=== PATIENT | female | born 1950 | race African-American/Black ===

== ENCOUNTER 2017-12-07 14:53 | Emergency (ER) | payer MEDICARE, OTHER ==
[~2017-12-07] VITALS: Ht 167.6 cm; Wt 87.3 kg
[~2017-12-07 14:53] MED LIST: ADV250 IH; ALBU8HFA4 IH; AMLO-512 PO; ASPI81 PO; BENA20 PO; CALC-41 PO; CLON-570 PO; DSS100 PO; FERR-89 PO; FURO40 PO; LENA10CA PO; METF500T4 PO; MONT10TA21 PO; ONDA4 PO; POTA10CA44 PO; PRAV20TA4 PO; [UNRECOGNIZED DRUG - CODE] PO
[2017-12-07] MEDS ORDERED: ALBU8.5H8 IH (15:03)
[2017-12-07] MEDS ORDERED: AMLO-511 PO (15:03)
[2017-12-07] MEDS ORDERED: BENA20 PO (15:03)
[2017-12-07] MEDS ORDERED: ADV250 IH (15:03)
[2017-12-07] MEDS ORDERED: MIRALAX PO (15:03)
[2017-12-07] MEDS ORDERED: GABA-531 PO (15:03)
[2017-12-07] MEDS ORDERED: MACR100 PO (15:03)
[2017-12-07 15:07] LABS: GLUCOSE,POINT OF CARE 134 MG/DL (70-110)
[2017-12-07] MEDS ORDERED: ONDANSETRON HCL 4 MG/2 ML VIAL IVP ONE ×2 (15:45→20:00)
[2017-12-07 15:59] LABS: BASOPHILS % (AUTO) 1.4 % (0.0-2.0); EOSINOPHILS % (AUTO) 1.6 % (1.0-6.0); HEMATOCRIT 41.4 % (36-46); HEMOGLOBIN 13.2 g/dL (12.0-16.0); LYMPHOCYTES # (AUTO) 1.3 K/uL (1.0-4.8); LYMPHOCYTES % (AUTO) 20.1 % (22.0-44.0); MEAN CORPUSCULAR HEMOGLOBIN 22.2 pg (26.0-34.0); MEAN CORPUSCULAR HGB CONC 31.9 G/dL (31.0-37.0); MEAN CORPUSCULAR VOLUME 70 fL (80-100); MONOCYTES # (AUTO) 0.8 K/uL (0.1-1.0); MONOCYTES % (AUTO) 12.9 % (2.0-9.0); NEUTROPHILS # (AUTO) 4.1 K/uL (1.8-7.7); PLATELET COUNT (AUTO) 251 K/uL (150-450); RED BLOOD CELL COUNT(AUTO) 5.96 MIL/uL (4.00-5.20); RED CELL DISTRIBUTION WIDTH 16.1 % (11.5-14.5)
[2017-12-07 16:05] LABS: ANION GAP 12 mmol/L (8-16); CALCIUM, TOTAL 8.9 mg/dL (8.8-10.5); CARBON DIOXIDE 27 mmol/L (22-29); CHLORIDE 107 mmol/L (98-107); CREATININE 0.84 mg/dL (0.60-1.30); GLOMERULAR FILTR. RATE CALC > 60 mL/min (>60); GLUCOSE,RANDOM 130 mg/dL (70-110); POTASSIUM 3.3 mmol/L (3.5-5.1); SODIUM SERUM 146 mmol/L (136-145); UREA NITROGEN, BLOOD 11 mg/dL (7-18)
[2017-12-07 16:08] LABS: APPEARANCE,URINE CLEAR (CLEAR); BILIRUBIN,URINE NEGATIVE (NEGATIVE); GLUCOSE, URINE (UA) NEGATIVE (NEGATIVE); KETONES,URINE NEGATIVE (NEGATIVE); LEUKOCYTE ESTERASE ,URINE MODERATE (NEGATIVE); NITRATE,URINE NEGATIVE (NEGATIVE); OCCULT BLOOD,URINE NEGATIVE (NEGATIVE); PH,URINE 6.5 (5.0-8.0); PROTEIN,URINE NEGATIVE (NEGATIVE); UROBILINOGEN,URINE 0.2 mg/dL (<=1.0)
[2017-12-07 16:11] LABS: ALANINE AMINOTRANSFERASE 25 U/L (12-78); ALBUMIN 3.8 g/dL (3.4-5.0); ALKALINE PHOSPHATASE 82 U/L (46-116); ASPARTATE AMINOTRANSFERASE 20 U/L (15-37); LIPASE 68 U/L (73-393); TOTAL PROTEIN, SERUM 8.5 g/dL (6.4-8.2)
[2017-12-07 16:24] LABS: PLATELET MORPHOLOGY COMMENT NORMAL
[2017-12-07 16:27] LABS: BACTERIA,URINE Few /HPF (None Seen); RBC,URINE 0-2 /HPF (0-2); SQUAMOUS EPITHELIAL CELL,UR Few /LPF (None Seen)
[2017-12-07] MEDS ORDERED: IOVERSOL 320 MG/ML 100 ML VIAL ONE (16:28)
[2017-12-07] MEDS ORDERED: BARIUM SULFATE 0.1% SUSPENSION 450 ML BOTTLE PO ONE (16:30)
[2017-12-07] MEDS ORDERED: SODIUM CHLORIDE 0.9% 1,000 ML IV ONE (16:45)
[2017-12-07] MEDS ORDERED: POTASSIUM CHLORIDE 20 MEQ ER TABLET PO ONE (17:15)
[2017-12-07] MEDS ORDERED: MORPHINE SULFATE 4 MG/ML SYRINGE IVP ONE (20:00)
[2017-12-07] MEDS ORDERED: CIPROFLOXACIN 400 MG/D5% WATER 200 ML IV ONE (21:45)
[2017-12-07 22:46] VITALS: BP 150/88
== END 2017-12-07 23:00 | disposition left against medical advice (07) ==
LOC: EMS 14:54
DX: N39.0 Urinary tract infection, site not specified (principal); R10.9 Unspecified abdominal pain; K82.8 Other specified diseases of gallbladder; J45.909 Unspecified asthma, uncomplicated; E11.9 Type 2 diabetes mellitus without complications; I10 Essential (primary) hypertension; Z88.1 Allergy status to other antibiotic agents; Z79.82 Long term (current) use of aspirin; Z79.899 Other long term (current) drug therapy
CPT/HCPCS: 36415; 74177; 76705; 80053; 81001; 82962; 83690; 84484; 85025; 87086; 93005; 96365; 96375; 96376; 99285; J0744; J2270; J2405; J7030; Q9967

== ENCOUNTER 2017-12-24 10:48 | Emergency (ER) | payer MEDICARE, OTHER ==
[~2017-12-24] VITALS: Ht 167.6 cm; Wt 87.3 kg
[~2017-12-24 10:48] MED LIST changes: +AMLO-511 PO; -AMLO-512 PO; -CALC-41 PO; -FERR-89 PO; +GABA-531 PO; -LENA10CA PO; +MACR100 PO; +MIRALAX PO; -[UNRECOGNIZED DRUG - CODE] PO
[2017-12-24 11:08] LABS: GLUCOSE,POINT OF CARE 144 MG/DL (70-110)
[2017-12-24] MEDS ORDERED: MORPHINE SULFATE 4 MG/ML SYRINGE IVP ONE (12:30)
[2017-12-24] MEDS ORDERED: ONDANSETRON HCL 4 MG/2 ML VIAL IVP ONE (12:30)
[2017-12-24 13:14] LABS: BASOPHILS % (AUTO) 2.4 % (0.0-2.0); EOSINOPHILS % (AUTO) 3.1 % (1.0-6.0); HEMATOCRIT 38.8 % (36-46); HEMOGLOBIN 12.1 g/dL (12.0-16.0); LYMPHOCYTES # (AUTO) 1.1 K/uL (1.0-4.8); LYMPHOCYTES % (AUTO) 22.9 % (22.0-44.0); MEAN CORPUSCULAR HEMOGLOBIN 21.9 pg (26.0-34.0); MEAN CORPUSCULAR HGB CONC 31.3 G/dL (31.0-37.0); MEAN CORPUSCULAR VOLUME 70 fL (80-100); MONOCYTES # (AUTO) 0.5 K/uL (0.1-1.0); MONOCYTES % (AUTO) 11.1 % (2.0-9.0); NEUTROPHILS # (AUTO) 2.9 K/uL (1.8-7.7); NEUTROPHILS % (AUTO) 60.5 % (40.0-70.0); PLATELET COUNT (AUTO) 269 K/uL (150-450); RED BLOOD CELL COUNT(AUTO) 5.54 MIL/uL (4.00-5.20); RED CELL DISTRIBUTION WIDTH 16.8 % (11.5-14.5)
[2017-12-24 13:30] VITALS: BP 148/85
[2017-12-24 13:39] LABS: ANION GAP 10 mmol/L (8-16); CALCIUM, TOTAL 9.2 mg/dL (8.8-10.5); CARBON DIOXIDE 29 mmol/L (22-29); CHLORIDE 106 mmol/L (98-107); CREATININE 0.77 mg/dL (0.60-1.30); GLOMERULAR FILTR. RATE CALC > 60 mL/min (>60); GLUCOSE,RANDOM 126 mg/dL (70-110); POTASSIUM 3.5 mmol/L (3.5-5.1); SODIUM SERUM 145 mmol/L (136-145); UREA NITROGEN, BLOOD 8 mg/dL (7-18)
[2017-12-24 13:44] LABS: ALANINE AMINOTRANSFERASE 91 U/L (12-78); ALBUMIN 3.5 g/dL (3.4-5.0); ALKALINE PHOSPHATASE 266 U/L (46-116); ASPARTATE AMINOTRANSFERASE 48 U/L (15-37); TOTAL PROTEIN, SERUM 7.6 g/dL (6.4-8.2)
== END 2017-12-24 13:51 | disposition home or self-care (01) ==
LOC: EMS 10:50
DX: S39.012A Strain of muscle, fascia and tendon of lower back, initial encounter (principal); J45.909 Unspecified asthma, uncomplicated; E11.9 Type 2 diabetes mellitus without complications; I10 Essential (primary) hypertension; Z88.1 Allergy status to other antibiotic agents; X50.0XXA Overexertion from strenuous movement or load, initial encounter; Y93.89 Activity, other specified; Y92.89 Other specified places as the place of occurrence of the external cause; Y99.8 Other external cause status
CPT/HCPCS: 36415; 73503; 80053; 82962; 85025; 96374; 96375; 99285; J2270; J2405

== ENCOUNTER 2017-12-27 15:10 | Emergency (ER) | payer MEDICARE, OTHER ==
[~2017-12-27] VITALS: Ht 167.6 cm; Wt 84.0 kg
[2017-12-27] MEDS ORDERED: CIPR-245 PO (15:19)
[2017-12-27] MEDS ORDERED: AMLO10TA55 PO (15:19)
[2017-12-27] MEDS ORDERED: PHEN-948 PO (15:19)
[2017-12-27] MEDS ORDERED: SODIUM CHLORIDE 0.9% 1,000 ML IV ONE (18:00)
[2017-12-27] MEDS ORDERED: BARIUM SULFATE 0.1% SUSPENSION 450 ML BOTTLE PO ONE (18:15)
[2017-12-27 18:19] LABS: EOSINOPHILS % (AUTO) 1.9 % (1.0-6.0); HEMATOCRIT 37.6 % (36-46); LYMPHOCYTES # (AUTO) 0.1 K/uL (1.0-4.8); LYMPHOCYTES % (AUTO) 1.1 % (22.0-44.0); MEAN CORPUSCULAR HEMOGLOBIN 22.2 pg (26.0-34.0); MEAN CORPUSCULAR HGB CONC 31.9 G/dL (31.0-37.0); MEAN CORPUSCULAR VOLUME 70 fL (80-100); MONOCYTES # (AUTO) 0.3 K/uL (0.1-1.0); MONOCYTES % (AUTO) 3.6 % (2.0-9.0); NEUTROPHILS # (AUTO) 7.7 K/uL (1.8-7.7); PLATELET COUNT (AUTO) 270 K/uL (150-450); RED CELL DISTRIBUTION WIDTH 16.4 % (11.5-14.5)
[2017-12-27 18:27] LABS: NEUTROPHILS % (AUTO) 92.4 % (40.0-70.0)
[2017-12-27 18:38] LABS: ALANINE AMINOTRANSFERASE 60 U/L (12-78); ALBUMIN 3.5 g/dL (3.4-5.0); ALKALINE PHOSPHATASE 196 U/L (46-116); ANION GAP 12 mmol/L (8-16); ASPARTATE AMINOTRANSFERASE 43 U/L (15-37); BILIRUBIN,TOTAL 1.6 mg/dL (0.1-1.0); CARBON DIOXIDE 27 mmol/L (22-29); CHLORIDE 103 mmol/L (98-107); CREATININE 0.88 mg/dL (0.60-1.30); GLOMERULAR FILTR. RATE CALC > 60 mL/min (>60); GLUCOSE,RANDOM 134 mg/dL (70-110); SODIUM SERUM 142 mmol/L (136-145); TOTAL PROTEIN, SERUM 7.6 g/dL (6.4-8.2); UREA NITROGEN, BLOOD 9 mg/dL (7-18)
[2017-12-27 18:52] LABS: APPEARANCE,URINE CLEAR (CLEAR); BILIRUBIN,URINE NEGATIVE (NEGATIVE); GLUCOSE, URINE (UA) NEGATIVE (NEGATIVE); KETONES,URINE NEGATIVE (NEGATIVE); LEUKOCYTE ESTERASE ,URINE TRACE (NEGATIVE); NITRATE,URINE POSITIVE (NEGATIVE); OCCULT BLOOD,URINE NEGATIVE (NEGATIVE); PH,URINE 5.5 (5.0-8.0); PROTEIN,URINE NEGATIVE (NEGATIVE)
[2017-12-27 19:04] LABS: BACTERIA,URINE Few /HPF (None Seen); RBC,URINE 0-2 /HPF (0-2); SQUAMOUS EPITHELIAL CELL,UR Few /LPF (None Seen)
[2017-12-27 19:06] LABS: POTASSIUM 2.8 mmol/L (3.5-5.1)
[2017-12-27] MEDS ORDERED: POTASSIUM CHLORIDE 20 MEQ ER TABLET PO ONE (19:15)
[2017-12-27] MEDS ORDERED: IOVERSOL 350 MG/ML 150 ML VIAL ONE (19:57)
[2017-12-27 21:10] VITALS: BP 119/78
== END 2017-12-27 21:41 | disposition home or self-care (01) ==
LOC: EMS 15:13
DX: E87.6 Hypokalemia (principal); R19.7 Diarrhea, unspecified; E11.9 Type 2 diabetes mellitus without complications; I10 Essential (primary) hypertension; J45.909 Unspecified asthma, uncomplicated; R10.32 Left lower quadrant pain; Z79.82 Long term (current) use of aspirin
CPT/HCPCS: 36415; 74177; 80053; 81001; 85025; 96360; 99285; J7030; Q9967

== ENCOUNTER 2018-08-23 10:27 | Emergency (ER) | payer MEDICARE, OTHER ==
[~2018-08-23] VITALS: Ht 162.6 cm; Wt 82.7 kg
[~2018-08-23 10:27] MED LIST changes: -AMLO-511 PO; +AMLO10TA55 PO; +CIPR-245 PO; -MACR100 PO; +METF-960 PO; -METF500T4 PO; +PHEN-948 PO; -PRAV20TA4 PO
[2018-08-23 10:39] LABS: GLUCOSE,POINT OF CARE 142 MG/DL (70-110)
[2018-08-23] MEDS ORDERED: PANT40TA25 PO (10:42)
[2018-08-23] MEDS ORDERED: COMP5 PO (10:42)
[2018-08-23] MEDS ORDERED: PERCT PO (10:42)
[2018-08-23] MEDS ORDERED: CHOL4PAC8 PO (10:42)
[2018-08-23] MEDS ORDERED: ACYC200C PO (10:42)
[2018-08-23 11:21] LABS: BILIRUBIN,URINE NEGATIVE (NEGATIVE); GLUCOSE, URINE (UA) NEGATIVE (NEGATIVE); KETONES,URINE NEGATIVE (NEGATIVE); LEUKOCYTE ESTERASE ,URINE MODERATE (NEGATIVE); NITRATE,URINE NEGATIVE (NEGATIVE); OCCULT BLOOD,URINE NEGATIVE (NEGATIVE); PH,URINE 5.5 (5.0-8.0); PROTEIN,URINE NEGATIVE (NEGATIVE); UROBILINOGEN,URINE 0.2 mg/dL (<=1.0)
[2018-08-23 11:28] LABS: APPEARANCE,URINE HAZY (CLEAR)
[2018-08-23 11:37] LABS: BACTERIA,URINE Rare /HPF (None Seen); RBC,URINE 0-2 /HPF (0-2); SQUAMOUS EPITHELIAL CELL,UR Few /LPF (None Seen)
[2018-08-23 11:59] VITALS: BP 145/75
[2018-08-23] MEDS ORDERED: MACR100 PO (16:53)
== END 2018-08-23 12:12 | disposition home or self-care (01) ==
LOC: EMS 10:28
DX: N39.0 Urinary tract infection, site not specified (principal); J45.909 Unspecified asthma, uncomplicated; E11.9 Type 2 diabetes mellitus without complications; I10 Essential (primary) hypertension; Z85.830 Personal history of malignant neoplasm of bone; Z79.82 Long term (current) use of aspirin; Z79.84 Long term (current) use of oral hypoglycemic drugs; Z79.899 Other long term (current) drug therapy; Z88.1 Allergy status to other antibiotic agents
CPT/HCPCS: 87086; 99284

== ENCOUNTER 2018-08-23 16:47 | Emergency (ER) | payer MEDICARE ==
[~2018-08-23] VITALS: Ht 162.6 cm; Wt 0.8 kg
[~2018-08-23 16:47] MED LIST changes: +ACYC200C PO; +CHOL4PAC8 PO; +COMP5 PO; +PANT40TA25 PO; +PERCT PO
[2018-08-23] MEDS ORDERED: MACR100 PO (16:53)
[2018-08-23 17:36] VITALS: BP 158/86
== END 2018-08-23 18:01 | disposition home or self-care (01) ==
LOC: EMS 16:48
DX: I10 Essential (primary) hypertension (principal); T37.8X5A Adverse effect of other specified systemic anti-infectives and antiparasitics, initial encounter; J45.909 Unspecified asthma, uncomplicated; E11.9 Type 2 diabetes mellitus without complications; Z88.1 Allergy status to other antibiotic agents; Z79.82 Long term (current) use of aspirin; Z79.899 Other long term (current) drug therapy; Z79.84 Long term (current) use of oral hypoglycemic drugs; Z85.830 Personal history of malignant neoplasm of bone; Z90.49 Acquired absence of other specified parts of digestive tract; Y92.89 Other specified places as the place of occurrence of the external cause

== ENCOUNTER 2022-02-25 10:26 | Emergency (ER) | payer MEDICARE, OTHER ==
[~2022-02-25] VITALS: Ht 165.1 cm; Wt 81.4 kg
[~2022-02-25 10:26] MED LIST changes: -ACYC200C PO; +ACYC200C24 PO; -ADV250 IH; +ASPI-1450 PO; -ASPI81 PO; -BENA20 PO; +BENA20TA83 PO; -CIPR-245 PO; -CLON-570 PO; +CLON0.1T2 PO; -COMP5 PO; -DSS100 PO; +FLUT1DIS6 IH; +GABA-1181 PO; -GABA-531 PO; +METF-1211 PO; -METF-960 PO; -MIRALAX PO; +MONT-35 PO; -MONT10TA21 PO; +NITR-75 PO; -ONDA4 PO; +PANT-31 PO; -PANT40TA25 PO; -PHEN-948 PO; -POTA10CA44 PO; +PROC5TAB54 PO
[2022-02-25 12:14] LABS: BASOPHILS % (AUTO) 0.1 % (0.0-2.0); EOSINOPHILS % (AUTO) 4.7 % (1.0-6.0); HEMATOCRIT 33.8 % (36-46); HEMOGLOBIN 10.4 g/dL (12.0-16.0); LYMPHOCYTES # (AUTO) 1.7 K/uL (1.0-4.8); LYMPHOCYTES % (AUTO) 19.2 % (22.0-44.0); MEAN CORPUSCULAR HEMOGLOBIN 23.9 pg (26.0-34.0); MEAN CORPUSCULAR HGB CONC 30.9 G/dL (31.0-37.0); MEAN CORPUSCULAR VOLUME 78 fL (80-100); MONOCYTES # (AUTO) 1.1 K/uL (0.1-1.0); MONOCYTES % (AUTO) 12.2 % (2.0-9.0); NEUTROPHILS # (AUTO) 5.8 K/uL (1.8-7.7); NEUTROPHILS % (AUTO) 63.8 % (40.0-70.0); PLATELET COUNT (AUTO) 104 K/uL (150-450); RED BLOOD CELL COUNT(AUTO) 4.36 MIL/uL (4.00-5.20); RED CELL DISTRIBUTION WIDTH 15.5 % (11.5-14.5)
[2022-02-25 12:26] LABS: ALANINE AMINOTRANSFERASE 23 U/L (12-78); ALBUMIN 3.1 g/dL (3.4-5.0); ALKALINE PHOSPHATASE 68 U/L (46-116); ANION GAP 11 mmol/L (8-16); ASPARTATE AMINOTRANSFERASE 18 U/L (15-37); BILIRUBIN,TOTAL 1.5 mg/dL (0.1-1.0); CALCIUM, TOTAL 8.1 mg/dL (8.8-10.5); CARBON DIOXIDE 29 mmol/L (22-29); CHLORIDE 109 mmol/L (98-107); CREATININE 0.89 mg/dL (0.60-1.30); GLOMERULAR FILTR. RATE CALC > 60 mL/min (>60); GLUCOSE,RANDOM 119 mg/dL (70-110); SODIUM SERUM 149 mmol/L (136-145); TOTAL PROTEIN, SERUM 5.7 g/dL (6.4-8.2); UREA NITROGEN, BLOOD 12 mg/dL (7-18)
[2022-02-25 12:27] LABS: PLATELET MORPHOLOGY COMMENT LARGE PLTS PRESENT
[2022-02-25 12:34] LABS: B-TYPE NATRIURETIC PEPTIDE 208 pg/mL (0-100); POTASSIUM 2.8 mmol/L (3.5-5.1)
[2022-02-25] MEDS ORDERED: POTASSIUM CHLORIDE 20 MEQ ER TABLET PO ONE (12:45)
[2022-02-25] MEDS ORDERED: GLIP2.5T23 PO (12:46)
[2022-02-25] MEDS ORDERED: CLOP75TA32 PO (12:46)
[2022-02-25] MEDS ORDERED: FLUT1BLS3 IH (12:46)
[2022-02-25] MEDS ORDERED: ALBU8HFA IH (12:46)
[2022-02-25] MEDS ORDERED: PREG50CA63 PO (12:46)
[2022-02-25] MEDS ORDERED: DEXA4TAB PO (12:46)
[2022-02-25] MEDS ORDERED: ASPI-1444 PO (12:46)
[2022-02-25] MEDS ORDERED: ATOR20TA65 PO (12:46)
[2022-02-25] MEDS ORDERED: FURO-152 PO (13:50)
[2022-02-25 13:53] LABS: CREATINE KINASE, TOTAL ONLY 40 U/L (26-192)
[2022-02-25] MEDS ORDERED: POTA-189 PO (13:53)
[2022-02-25] MEDS ORDERED: HYDROCODONE/ACETAMINOPHEN 5-325 MG TABLET PO ONE (14:00)
[2022-02-25 14:22] VITALS: BP 136/81
== END 2022-02-25 14:26 | disposition home or self-care (01) ==
LOC: EMS 10:26
DX: S90.32XA Contusion of left foot, initial encounter (principal); R60.0 Localized edema; J45.909 Unspecified asthma, uncomplicated; E11.9 Type 2 diabetes mellitus without complications; I10 Essential (primary) hypertension; Z90.89 Acquired absence of other organs; Z79.84 Long term (current) use of oral hypoglycemic drugs; Z88.1 Allergy status to other antibiotic agents; Z79.899 Other long term (current) drug therapy; W20.8XXA Other cause of strike by thrown, projected or falling object, initial encounter; Y93.89 Activity, other specified; Y92.89 Other specified places as the place of occurrence of the external cause; Y99.8 Other external cause status
CPT/HCPCS: 71045; 80053; 82550; 82962; 83880; 84484; 85025; 93005; 99285; 36415-L1; 36415-TC

== ENCOUNTER 2022-03-29 12:18 | Emergency (ER) | payer MEDICARE, OTHER ==
[~2022-03-29] VITALS: Ht 165.1 cm; Wt 81.4 kg
[~2022-03-29 12:18] MED LIST changes: -ACYC200C24 PO; +ALBU8HFA IH; -ALBU8HFA4 IH; +ASPI-1444 PO; -ASPI-1450 PO; +ATOR20TA65 PO; -CHOL4PAC8 PO; +CLOP75TA32 PO; +DEXA4TAB PO; +FLUT1BLS3 IH; -FLUT1DIS6 IH; +FURO-152 PO; -FURO40 PO; -GABA-1181 PO; +GLIP2.5T2 PO; -NITR-75 PO; -PERCT PO; +POTA-189 PO; +PREG50CA63 PO; -PROC5TAB54 PO
[2022-03-29 13:11] LABS: BASOPHILS % (AUTO) 1.1 % (0.0-2.0); EOSINOPHILS % (AUTO) 3.3 % (1.0-6.0); HEMOGLOBIN 10.3 g/dL (12.0-16.0); LYMPHOCYTES # (AUTO) 2.5 K/uL (1.0-4.8); MEAN CORPUSCULAR HGB CONC 31.1 G/dL (31.0-37.0); MEAN CORPUSCULAR VOLUME 77 fL (80-100); MONOCYTES # (AUTO) 0.7 K/uL (0.1-1.0); MONOCYTES % (AUTO) 8.4 % (2.0-9.0); NEUTROPHILS # (AUTO) 4.7 K/uL (1.8-7.7); NEUTROPHILS % (AUTO) 57.2 % (40.0-70.0); PLATELET COUNT (AUTO) 209 K/uL (150-450); RED BLOOD CELL COUNT(AUTO) 4.27 MIL/uL (4.00-5.20); RED CELL DISTRIBUTION WIDTH 14.8 % (11.5-14.5)
[2022-03-29 14:12] LABS: ERYTHROCYTE SEDIMENTATION RATE 4 MM/HR (0-20)
[2022-03-29 16:02] LABS: ANION GAP 11 mmol/L (8-16); CALCIUM, TOTAL 8.5 mg/dL (8.8-10.5); CARBON DIOXIDE 27 mmol/L (22-29); CHLORIDE 111 mmol/L (98-107); CREATININE 0.74 mg/dL (0.60-1.30); GLOMERULAR FILTR. RATE CALC > 60 mL/min (>60); GLUCOSE,RANDOM 80 mg/dL (70-110); POTASSIUM 3.3 mmol/L (3.5-5.1); SODIUM SERUM 149 mmol/L (136-145); UREA NITROGEN, BLOOD 11 mg/dL (7-18)
[2022-03-29 16:14] LABS: ALANINE AMINOTRANSFERASE 25 U/L (12-78); ALBUMIN 3.3 g/dL (3.4-5.0); ALKALINE PHOSPHATASE 76 U/L (46-116); ASPARTATE AMINOTRANSFERASE 33 U/L (15-37); BILIRUBIN,TOTAL 1.5 mg/dL (0.1-1.0); C-REACTIVE PROTEIN QUANT 0.05 mg/dL (0.00-0.30)
[2022-03-29] MEDS ORDERED: POTASSIUM CHLORIDE 20 MEQ ER TABLET PO ONE (16:45)
[2022-03-29 16:59] VITALS: BP 137/67
== END 2022-03-29 17:07 | disposition home or self-care (01) ==
LOC: EMS 12:19
DX: S90.32XA Contusion of left foot, initial encounter (principal); J45.909 Unspecified asthma, uncomplicated; E11.9 Type 2 diabetes mellitus without complications; I10 Essential (primary) hypertension; R22.42 Localized swelling, mass and lump, left lower limb; W19.XXXA Unspecified fall, initial encounter; Y93.89 Activity, other specified; Y92.89 Other specified places as the place of occurrence of the external cause; Y99.8 Other external cause status; Z88.6 Allergy status to analgesic agent; Z90.49 Acquired absence of other specified parts of digestive tract
CPT/HCPCS: 80053; 85025; 85379; 85651; 86140; 87040; 93971; 99284

== ENCOUNTER 2023-11-24 13:36 | Inpatient (IN) | payer MEDICARE, OTHER ==
[~2023-11-24] VITALS: Ht 160 cm; Wt 75.5 kg
[~2023-11-24 13:36] MED LIST changes: +ALBU18HF12 IH; -ALBU8HFA IH; +BENA-18 PO; -BENA20TA83 PO; -GLIP2.5T2 PO; +GLIP2.5T28 PO; -PREG50CA63 PO; +PREG50CA64 PO
[2023-11-24] MEDS ORDERED: IPRATROPIUM BROMIDE 0.5 MG/2.5 ML NEB SOLUTION NEB ONE (13:45)
[2023-11-24] MEDS ORDERED: ALBUTEROL SULFATE 2.5 MG/0.5 ML 5 ML NEB SOLUTION NEB ONE (13:45)
[2023-11-24] MEDS ORDERED: MethylPREDNISolone SOD SUCC 125 MG/2 ML VIAL IVP ONE (13:45)
[2023-11-24] MEDS ORDERED: 0.9% SODIUM CHLORIDE 5 ML NEB SOLUTION NEB ONE (13:52)
[2023-11-24] MEDS ORDERED: CALC-1271 PO (13:59)
[2023-11-24] MEDS ORDERED: FURO40TA5 PO (13:59)
[2023-11-24] MEDS ORDERED: AMBR5TAB5 PO (13:59)
[2023-11-24] MEDS ORDERED: IBUP-2076 PO (13:59)
[2023-11-24] MEDS ORDERED: CHOL500013 PO (13:59)
[2023-11-24] MEDS ORDERED: APIX5TAB PO (13:59)
[2023-11-24] MEDS ORDERED: DULO-114 PO (13:59)
[2023-11-24] MEDS ORDERED: AMLO5TAB66 PO (13:59)
[2023-11-24] MEDS ORDERED: SPIR50TA27 PO (13:59)
[2023-11-24] MEDS ORDERED: OXYC10TA48 PO (13:59)
[2023-11-24] MEDS ORDERED: HYDR50TA37 PO (13:59)
[2023-11-24] MEDS ORDERED: ACYC200C24 PO (13:59)
[2023-11-24] MEDS ORDERED: SENN-277 PO (13:59)
[2023-11-24] MEDS ORDERED: CYAN-53 PO (13:59)
[2023-11-24 14:03] VITALS: PULSE 90; RESP 20; O2SAT 97
[2023-11-24 14:05] VITALS: PULSE 90; RESP 20; O2SAT 97
[2023-11-24 14:28] LABS: BASOPHILS % (AUTO) 1.6 % (0.0-2.0); EOSINOPHILS % (AUTO) 2.8 % (1.0-6.0); HEMATOCRIT 27.6 % (36-46); HEMOGLOBIN 8.9 g/dL (12.0-16.0); LYMPHOCYTES # (AUTO) 1.8 K/uL (1.0-4.8); LYMPHOCYTES % (AUTO) 30.9 % (22.0-44.0); MEAN CORPUSCULAR HEMOGLOBIN 21.6 pg (26.0-34.0); MEAN CORPUSCULAR HGB CONC 32.1 G/dL (31.0-37.0); MEAN CORPUSCULAR VOLUME 68 fL (80-100); MONOCYTES # (AUTO) 0.5 K/uL (0.1-1.0); MONOCYTES % (AUTO) 9.4 % (2.0-9.0); NEUTROPHILS # (AUTO) 3.2 K/uL (1.8-7.7); NEUTROPHILS % (AUTO) 55.3 % (40.0-70.0); PLATELET COUNT (AUTO) 331 K/uL (150-450); RED BLOOD CELL COUNT(AUTO) 4.09 MIL/uL (4.00-5.20); RED CELL DISTRIBUTION WIDTH 18.5 % (11.5-14.5); WHITE BLOOD COUNT (AUTO) 5.7 K/uL (4.5-11.0)
[2023-11-24 14:40] LABS: COVID AG,FIA SOURCE NASAL SWAB
[2023-11-24 14:47] LABS: B-TYPE NATRIURETIC PEPTIDE 40 pg/mL (0-100)
[2023-11-24 14:57] LABS: SARS-COV2 (COVID) ANTIGEN,FIA Negative (Negative)
[2023-11-24 15:10] LABS: RBC MORPHOLOGY COMMENT ABNORMAL RBC MORPH
[2023-11-24 15:20] VITALS: PULSE 106; RESP 20; O2SAT 99
[2023-11-24] MEDS ORDERED: MAGNESIUM HYDROXIDE SUSPENSION 30 ML UDCUP PO PRN (15:30)
[2023-11-24] MEDS ORDERED: OxyCODONE HCL 5 MG IR TABLET PO ONE (15:30)
[2023-11-24] MEDS ORDERED: DEXTROSE 50%-WATER 25 GM/50 ML SYRINGE IVP PRN (15:30)
[2023-11-24] MEDS ORDERED: ACETAMINOPHEN 325 MG TABLET PO PRN (15:30)
[2023-11-24] MEDS ORDERED: ALBUTEROL SULFATE 2.5 MG/0.5 ML NEB SOLUTION NEB PRN (15:30)
[2023-11-24 15:41] LABS: ANION GAP 14 mmol/L (8-16); CALCIUM, TOTAL 9.4 mg/dL (8.8-10.5); CARBON DIOXIDE 24 mmol/L (22-29); CHLORIDE 102 mmol/L (98-107); CREATININE 0.87 mg/dL (0.60-1.30); GLOMERULAR FILTR. RATE CALC > 60 mL/min (>60); GLUCOSE,RANDOM 126 mg/dL (70-110); POTASSIUM 3.4 mmol/L (3.5-5.1); SODIUM SERUM 140 mmol/L (136-145); UREA NITROGEN, BLOOD 16 mg/dL (7-18)
[2023-11-24 15:49] LABS: ALBUMIN 3.7 g/dL (3.4-5.0); ALKALINE PHOSPHATASE 62 U/L (46-116); ASPARTATE AMINOTRANSFERASE 21 U/L (15-37); CREATINE KINASE, TOTAL ONLY 95 U/L (26-192); TOTAL PROTEIN, SERUM 6.2 g/dL (6.4-8.2)
[2023-11-24 16:08] LABS: ALANINE AMINOTRANSFERASE 14 U/L (12-78)
[2023-11-24 16:15] LABS: TROPONIN I-HIGH SENSITIVITY 16 ng/L (<51)
[2023-11-24] MEDS: INSULIN LISPRO 100 UNITS/ML SQ PRN ×2 (18:40→21:05)
[2023-11-24 18:45] VITALS: BP 142/85; PULSE 88; RESP 18; TEMP 98.2
[2023-11-24 19:36] LABS: GLUCOMETER DEV NAME(LOC) 5S.1B; GLUCOSE,POINT OF CARE 158 MG/DL (70-110)
[2023-11-24] MEDS ORDERED: PNEUMOCOCCAL VACCINE POLYVALENT 0.5 ML SYRINGE [PPSV23] IM. ONE (20:15)
[2023-11-24] MEDS ORDERED: INFLUENZA VIRUS VACCINE QVS 2023-24 (6MO+)/PF 60 MCG/0.5 ML SYRINGE IM. ONE (20:15)
[2023-11-24] MEDS ORDERED: POTASSIUM CHL 10 MEQ/WATER 50 ML IV PRN (20:45)
[2023-11-24 20:50] VITALS: BP 141/81; PULSE 109; RESP 18; TEMP 98.9
[2023-11-24] MEDS: APIXABAN 5 MG TABLET PO SCH (21:02)
[2023-11-24] MEDS: POTASSIUM CHLORIDE 20 MEQ ER TABLET PO PRN (21:02)
[2023-11-24] MEDS: OxyCODONE HCL/ACETAMINOPHEN 5-325 MG TABLET PO PRN (21:38)
[2023-11-25] MEDS ORDERED: MethylPREDNISolone SOD SUCC 125 MG/2 ML VIAL IVP SCH
[2023-11-25 00:25] VITALS: BP 124/66; PULSE 95; RESP 18; TEMP 98.1
[2023-11-25] MEDS: OxyCODONE HCL/ACETAMINOPHEN 5-325 MG TABLET PO PRN ×4 (03:38→16:27)
[2023-11-25 04:00] VITALS: BP 141/76; PULSE 80; RESP 18; TEMP 98.1
[2023-11-25 05:52] LABS: GLUCOMETER DEV NAME(LOC) 5N.2C; GLUCOSE,POINT OF CARE 195 MG/DL (70-110)
[2023-11-25] MEDS: INSULIN LISPRO 100 UNITS/ML SQ PRN ×3 (06:05→20:32)
[2023-11-25 06:52] LABS: BASOPHILS % (AUTO) 0.1 % (0.0-2.0); EOSINOPHILS % (AUTO) 0 % (1.0-6.0); HEMATOCRIT 24.1 % (36-46); HEMOGLOBIN 7.7 g/dL (12.0-16.0); LYMPHOCYTES # (AUTO) 1.2 K/uL (1.0-4.8); LYMPHOCYTES % (AUTO) 18.3 % (22.0-44.0); MEAN CORPUSCULAR HEMOGLOBIN 21.6 pg (26.0-34.0); MEAN CORPUSCULAR VOLUME 68 fL (80-100); MONOCYTES # (AUTO) 0.1 K/uL (0.1-1.0); MONOCYTES % (AUTO) 1.8 % (2.0-9.0); NEUTROPHILS # (AUTO) 5.3 K/uL (1.8-7.7); NEUTROPHILS % (AUTO) 79.8 % (40.0-70.0); PLATELET COUNT (AUTO) 313 K/uL (150-450); RED BLOOD CELL COUNT(AUTO) 3.57 MIL/uL (4.00-5.20); RED CELL DISTRIBUTION WIDTH 18.3 % (11.5-14.5); WHITE BLOOD COUNT (AUTO) 6.7 K/uL (4.5-11.0)
[2023-11-25 07:47] LABS: ALANINE AMINOTRANSFERASE 12 U/L (12-78); ALBUMIN 3.1 g/dL (3.4-5.0); ALKALINE PHOSPHATASE 52 U/L (46-116); ANION GAP 10 mmol/L (8-16); ASPARTATE AMINOTRANSFERASE 18 U/L (15-37); BILIRUBIN,TOTAL 0.8 mg/dL (0.1-1.0); CALCIUM, TOTAL 9.2 mg/dL (8.8-10.5); CARBON DIOXIDE 27 mmol/L (22-29); CHLORIDE 108 mmol/L (98-107); CREATININE 0.67 mg/dL (0.60-1.30); GLOMERULAR FILTR. RATE CALC > 60 mL/min (>60); GLUCOSE,RANDOM 157 mg/dL (70-110); SODIUM SERUM 144 mmol/L (136-145); TOTAL PROTEIN, SERUM 5.5 g/dL (6.4-8.2); UREA NITROGEN, BLOOD 13 mg/dL (7-18)
[2023-11-25 07:53] LABS: RBC MORPHOLOGY COMMENT ABNORMAL RBC MORPH
[2023-11-25 08:00] VITALS: BP 132/74; PULSE 76; RESP 18; TEMP 98.2
[2023-11-25] MEDS: APIXABAN 5 MG TABLET PO SCH ×2 (08:22→20:25)
[2023-11-25] MEDS: FAMOTIDINE 20 MG TABLET PO SCH (08:22)
[2023-11-25] MEDS: PredniSONE 20 MG TABLET PO SCH (08:24)
[2023-11-25 12:00] VITALS: BP 125/68; PULSE 72; RESP 18; TEMP 98
[2023-11-25 12:31] LABS: GLUCOMETER DEV NAME(LOC) 5S.1B; GLUCOSE,POINT OF CARE 156 MG/DL (70-110)
[2023-11-25 16:00] VITALS: BP 130/78; PULSE 74; RESP 18; TEMP 98.1
[2023-11-25 17:47] LABS: GLUCOMETER DEV NAME(LOC) 5N.1C; GLUCOSE,POINT OF CARE 131 MG/DL (70-110)
[2023-11-25 17:47] LABS: GLUCOMETER DEV NAME(LOC) 5N.1C; GLUCOSE,POINT OF CARE 203 MG/DL (70-110)
[2023-11-25 19:43] VITALS: BP 140/72; PULSE 77; RESP 18; TEMP 98.1
[2023-11-26] VITALS (8 sets, daily range): BP systolic 109–168; BP diastolic 51–91; PULSE 60–96; RESP 18–19; TEMP 98–99
[2023-11-26 00:01] LABS: GLUCOMETER DEV NAME(LOC) 5S.1B; GLUCOSE,POINT OF CARE 142 MG/DL (70-110)
[2023-11-26 06:01] LABS: GLUCOMETER DEV NAME(LOC) 5N.1C; GLUCOSE,POINT OF CARE 74 MG/DL (70-110)
[2023-11-26] MEDS: OxyCODONE HCL/ACETAMINOPHEN 5-325 MG TABLET PO PRN ×2 (06:09→18:02)
[2023-11-26 07:10] LABS: ALANINE AMINOTRANSFERASE 11 U/L (12-78); ALBUMIN 2.9 g/dL (3.4-5.0); ALKALINE PHOSPHATASE 46 U/L (46-116); ASPARTATE AMINOTRANSFERASE 20 U/L (15-37); BILIRUBIN,TOTAL 0.8 mg/dL (0.1-1.0); CALCIUM, TOTAL 8.6 mg/dL (8.8-10.5); CARBON DIOXIDE 30 mmol/L (22-29); CREATININE 0.76 mg/dL (0.60-1.30); GLOMERULAR FILTR. RATE CALC > 60 mL/min (>60); GLUCOSE,RANDOM 92 mg/dL (70-110); TOTAL PROTEIN, SERUM 5.4 g/dL (6.4-8.2); UREA NITROGEN, BLOOD 14 mg/dL (7-18)
[2023-11-26 07:15] LABS: BASOPHILS % (AUTO) 0.4 % (0.0-2.0); EOSINOPHILS % (AUTO) 0.9 % (1.0-6.0); HEMATOCRIT 23.8 % (36-46); HEMOGLOBIN 7.8 g/dL (12.0-16.0); LYMPHOCYTES # (AUTO) 1.4 K/uL (1.0-4.8); LYMPHOCYTES % (AUTO) 16.5 % (22.0-44.0); MEAN CORPUSCULAR HEMOGLOBIN 21.8 pg (26.0-34.0); MEAN CORPUSCULAR HGB CONC 32.6 G/dL (31.0-37.0); MEAN CORPUSCULAR VOLUME 67 fL (80-100); MONOCYTES # (AUTO) 0.8 K/uL (0.1-1.0); MONOCYTES % (AUTO) 10.1 % (2.0-9.0); NEUTROPHILS % (AUTO) 72.1 % (40.0-70.0); PLATELET COUNT (AUTO) 327 K/uL (150-450); RED BLOOD CELL COUNT(AUTO) 3.57 MIL/uL (4.00-5.20); WHITE BLOOD COUNT (AUTO) 8.3 K/uL (4.5-11.0)
[2023-11-26 07:33] LABS: ANION GAP 7 mmol/L (8-16); CHLORIDE 108 mmol/L (98-107); POTASSIUM 3.4 mmol/L (3.5-5.1); SODIUM SERUM 145 mmol/L (136-145)
[2023-11-26] MEDS: FAMOTIDINE 20 MG TABLET PO SCH (08:50)
[2023-11-26] MEDS: APIXABAN 5 MG TABLET PO SCH ×2 (08:51→21:15)
[2023-11-26] MEDS: PredniSONE 20 MG TABLET PO SCH (08:51)
[2023-11-26 09:05] LABS: RBC MORPHOLOGY COMMENT ABNORMAL RBC MORPH
[2023-11-26 11:36] LABS: GLUCOMETER DEV NAME(LOC) 5S.1B; GLUCOSE,POINT OF CARE 113 MG/DL (70-110)
[2023-11-26 18:51] LABS: GLUCOMETER DEV NAME(LOC) 5S.1B; GLUCOSE,POINT OF CARE 112 MG/DL (70-110)
[2023-11-27] MEDS: POTASSIUM CHLORIDE 20 MEQ ER TABLET PO PRN (00:47)
[2023-11-27] MEDS: OxyCODONE HCL/ACETAMINOPHEN 5-325 MG TABLET PO PRN ×3 (00:47→19:41)
[2023-11-27 01:01] LABS: GLUCOMETER DEV NAME(LOC) 5S.1B; GLUCOSE,POINT OF CARE 126 MG/DL (70-110)
[2023-11-27] MEDS ORDERED: AmLODIPine BESYLATE 5 MG TABLET PO ONE (04:00)
[2023-11-27 04:38] VITALS: BP 159/73; PULSE 59; RESP 18; TEMP 98.2
[2023-11-27 07:46] LABS: GLUCOMETER DEV NAME(LOC) 6N.2B; GLUCOSE,POINT OF CARE 87 MG/DL (70-110)
[2023-11-27 09:03] VITALS: BP_SYST 106; BP_SYST 146; BP_DIAS 70; BP_DIAS 80; PULSE 89; RESP 18; TEMP 98
[2023-11-27] MEDS: FAMOTIDINE 20 MG TABLET PO SCH (09:25)
[2023-11-27] MEDS: PredniSONE 20 MG TABLET PO SCH (09:25)
[2023-11-27] MEDS ORDERED: AZITHROMYCIN 500 MG TABLET PO ONE (10:15)
[2023-11-27 10:30] LABS: EOSINOPHILS % (AUTO) 6.4 % (1.0-6.0); HEMATOCRIT 29.3 % (36-46); HEMOGLOBIN 9.3 g/dL (12.0-16.0); LYMPHOCYTES # (AUTO) 1.5 K/uL (1.0-4.8); LYMPHOCYTES % (AUTO) 22.6 % (22.0-44.0); MEAN CORPUSCULAR HEMOGLOBIN 21.5 pg (26.0-34.0); MEAN CORPUSCULAR HGB CONC 31.8 G/dL (31.0-37.0); MEAN CORPUSCULAR VOLUME 68 fL (80-100); MONOCYTES # (AUTO) 0.8 K/uL (0.1-1.0); MONOCYTES % (AUTO) 11.7 % (2.0-9.0); NEUTROPHILS # (AUTO) 3.8 K/uL (1.8-7.7); NEUTROPHILS % (AUTO) 57.3 % (40.0-70.0); PLATELET COUNT (AUTO) 374 K/uL (150-450); RED BLOOD CELL COUNT(AUTO) 4.32 MIL/uL (4.00-5.20); RED CELL DISTRIBUTION WIDTH 17.8 % (11.5-14.5); WHITE BLOOD COUNT (AUTO) 6.7 K/uL (4.5-11.0)
[2023-11-27 10:47] LABS: ALANINE AMINOTRANSFERASE 17 U/L (12-78); ALBUMIN 3.5 g/dL (3.4-5.0); ALKALINE PHOSPHATASE 66 U/L (46-116); ANION GAP 9 mmol/L (8-16); ASPARTATE AMINOTRANSFERASE 27 U/L (15-37); CALCIUM, TOTAL 9.1 mg/dL (8.8-10.5); CARBON DIOXIDE 28 mmol/L (22-29); CHLORIDE 107 mmol/L (98-107); CREATININE 0.83 mg/dL (0.60-1.30); GLOMERULAR FILTR. RATE CALC > 60 mL/min (>60); GLUCOSE,RANDOM 107 mg/dL (70-110); POTASSIUM 3.6 mmol/L (3.5-5.1); SODIUM SERUM 144 mmol/L (136-145); TOTAL PROTEIN, SERUM 5.8 g/dL (6.4-8.2); UREA NITROGEN, BLOOD 12 mg/dL (7-18)
[2023-11-27] MEDS: APIXABAN 5 MG TABLET PO SCH ×2 (12:30→19:40)
[2023-11-27] MEDS: INSULIN LISPRO 100 UNITS/ML SQ PRN ×2 (12:31→20:49)
[2023-11-27 13:51] LABS: GLUCOMETER DEV NAME(LOC) 6S.2; GLUCOSE,POINT OF CARE 125 MG/DL (70-110)
[2023-11-27 16:56] VITALS: BP 146/84; PULSE 82; RESP 18; TEMP 98.4
[2023-11-27 18:07] LABS: GLUCOMETER DEV NAME(LOC) 4E.2; GLUCOSE,POINT OF CARE 120 MG/DL (70-110)
[2023-11-27 20:41] VITALS: BP 138/71; PULSE 66; RESP 18; TEMP 98
[2023-11-28 00:42] LABS: GLUCOMETER DEV NAME(LOC) 6N.2B; GLUCOSE,POINT OF CARE 145 MG/DL (70-110)
[2023-11-28 05:35] VITALS: BP 142/73; PULSE 67; RESP 18; TEMP 98.7
[2023-11-28 07:41] LABS: GLUCOMETER DEV NAME(LOC) 6S.2; GLUCOSE,POINT OF CARE 96 MG/DL (70-110)
[2023-11-28 08:18] VITALS: BP 144/81; PULSE 80; RESP 18; TEMP 97.2
[2023-11-28] MEDS: FAMOTIDINE 20 MG TABLET PO SCH (09:17)
[2023-11-28] MEDS: PredniSONE 20 MG TABLET PO SCH (09:17)
[2023-11-28] MEDS: OxyCODONE HCL/ACETAMINOPHEN 5-325 MG TABLET PO PRN ×2 (09:18→19:40)
[2023-11-28] MEDS: AmLODIPine BESYLATE 5 MG TABLET PO SCH (09:18)
[2023-11-28] MEDS: APIXABAN 5 MG TABLET PO SCH ×2 (09:18→19:39)
[2023-11-28] MEDS: AZITHROMYCIN 250 MG TABLET PO SCH (09:18)
[2023-11-28 13:21] LABS: GLUCOMETER DEV NAME(LOC) 4E.2; GLUCOSE,POINT OF CARE 130 MG/DL (70-110)
[2023-11-28 16:02] VITALS: BP 131/74; PULSE 89; RESP 18; TEMP 98
[2023-11-28 17:56] LABS: GLUCOMETER DEV NAME(LOC) 6N.2B; GLUCOSE,POINT OF CARE 169 MG/DL (70-110)
[2023-11-28] MEDS: INSULIN LISPRO 100 UNITS/ML SQ PRN (18:16)
[2023-11-28 20:31] VITALS: BP 145/73; PULSE 65; RESP 20; TEMP 98.6
[2023-11-29 01:56] LABS: GLUCOMETER DEV NAME(LOC) 4E.2; GLUCOSE,POINT OF CARE 127 MG/DL (70-110)
[2023-11-29 05:27] VITALS: BP 141/65; PULSE 72; RESP 20; TEMP 98.3
[2023-11-29 07:46] LABS: GLUCOMETER DEV NAME(LOC) 4E.2; GLUCOSE,POINT OF CARE 102 MG/DL (70-110)
[2023-11-29 08:20] VITALS: BP 146/75; PULSE 69; RESP 18; TEMP 98.3
[2023-11-29] MEDS: APIXABAN 5 MG TABLET PO SCH ×2 (08:21→20:17)
[2023-11-29] MEDS: OxyCODONE HCL/ACETAMINOPHEN 5-325 MG TABLET PO PRN ×2 (08:21→20:17)
[2023-11-29] MEDS: AmLODIPine BESYLATE 5 MG TABLET PO SCH (08:21)
[2023-11-29] MEDS: FAMOTIDINE 20 MG TABLET PO SCH (08:21)
[2023-11-29] MEDS: PredniSONE 20 MG TABLET PO SCH (08:21)
[2023-11-29] MEDS: AZITHROMYCIN 250 MG TABLET PO SCH (08:23)
[2023-11-29 13:02] LABS: GLUCOMETER DEV NAME(LOC) 6N.2B; GLUCOSE,POINT OF CARE 136 MG/DL (70-110)
[2023-11-29 15:56] VITALS: BP 139/82; PULSE 85; RESP 18; TEMP 97.6
[2023-11-29] MEDS: INSULIN LISPRO 100 UNITS/ML SQ PRN (17:53)
[2023-11-29 19:55] VITALS: BP 164/87; PULSE 71; RESP 20; TEMP 98.5
[2023-11-29 20:40] VITALS: BP 158/80; RESP 18
[2023-11-30 00:41] LABS: GLUCOMETER DEV NAME(LOC) 6N.2B; GLUCOSE,POINT OF CARE 127 MG/DL (70-110)
[2023-11-30 03:52] VITALS: BP 155/92; PULSE 74; RESP 18; TEMP 98.5
[2023-11-30 07:51] LABS: GLUCOMETER DEV NAME(LOC) 4E.2; GLUCOSE,POINT OF CARE 87 MG/DL (70-110)
[2023-11-30 07:55] VITALS: BP 150/79; PULSE 80; RESP 18; TEMP 98.7
[2023-11-30] MEDS: PredniSONE 20 MG TABLET PO SCH (08:03)
[2023-11-30] MEDS: AmLODIPine BESYLATE 5 MG TABLET PO SCH (08:04)
[2023-11-30] MEDS: OxyCODONE HCL/ACETAMINOPHEN 5-325 MG TABLET PO PRN ×2 (08:04→20:40)
[2023-11-30] MEDS: AZITHROMYCIN 250 MG TABLET PO SCH (08:04)
[2023-11-30] MEDS: FAMOTIDINE 20 MG TABLET PO SCH (08:04)
[2023-11-30] MEDS: APIXABAN 5 MG TABLET PO SCH ×2 (08:05→20:40)
[2023-11-30] MEDS: INSULIN LISPRO 100 UNITS/ML SQ PRN (12:19)
[2023-11-30 12:36] LABS: GLUCOMETER DEV NAME(LOC) 4E.2; GLUCOSE,POINT OF CARE 153 MG/DL (70-110)
[2023-11-30 20:02] VITALS: BP 148/82; PULSE 71; RESP 18; TEMP 98.6
[2023-12-01] MEDS: OxyCODONE HCL/ACETAMINOPHEN 5-325 MG TABLET PO PRN ×4 (02:26→23:42)
[2023-12-01 02:40] LABS: GLUCOMETER DEV NAME(LOC) 6S.2; GLUCOSE,POINT OF CARE 129 MG/DL (70-110)
[2023-12-01 04:10] VITALS: BP 143/88; PULSE 69; RESP 18; TEMP 97.8
[2023-12-01] MEDS: AZITHROMYCIN 250 MG TABLET PO SCH (08:08)
[2023-12-01] MEDS: APIXABAN 5 MG TABLET PO SCH ×2 (08:08→20:39)
[2023-12-01] MEDS: FAMOTIDINE 20 MG TABLET PO SCH (08:08)
[2023-12-01] MEDS: AmLODIPine BESYLATE 5 MG TABLET PO SCH (08:08)
[2023-12-01] MEDS: PredniSONE 20 MG TABLET PO SCH (08:08)
[2023-12-01 08:16] LABS: GLUCOMETER DEV NAME(LOC) 6N.2B; GLUCOSE,POINT OF CARE 102 MG/DL (70-110)
[2023-12-01 08:27] VITALS: BP 139/78; PULSE 74; RESP 18; TEMP 97.8
[2023-12-01] MEDS: INSULIN LISPRO 100 UNITS/ML SQ PRN ×2 (12:08→20:40)
[2023-12-01 12:41] LABS: GLUCOMETER DEV NAME(LOC) 6S.2; GLUCOSE,POINT OF CARE 161 MG/DL (70-110)
[2023-12-01 15:34] VITALS: BP 127/75; PULSE 87; RESP 18; TEMP 98.4
[2023-12-01 19:06] LABS: GLUCOMETER DEV NAME(LOC) 4E.2; GLUCOSE,POINT OF CARE 132 MG/DL (70-110)
[2023-12-01 19:30] VITALS: BP 142/79; PULSE 75; RESP 18; TEMP 97.9
[2023-12-01 23:26] LABS: GLUCOMETER DEV NAME(LOC) 4E.2; GLUCOSE,POINT OF CARE 168 MG/DL (70-110)
[2023-12-02 05:43] VITALS: BP 154/79; PULSE 63; RESP 18; TEMP 98.3
[2023-12-02 07:12] LABS: GLUCOMETER DEV NAME(LOC) 6N.2B; GLUCOSE,POINT OF CARE 96 MG/DL (70-110)
[2023-12-02] MEDS: AmLODIPine BESYLATE 5 MG TABLET PO SCH (07:58)
[2023-12-02] MEDS: PredniSONE 10 MG TABLET PO SCH (07:58)
[2023-12-02] MEDS: AZITHROMYCIN 250 MG TABLET PO SCH (07:59)
[2023-12-02] MEDS: APIXABAN 5 MG TABLET PO SCH ×2 (07:59→21:03)
[2023-12-02] MEDS: OxyCODONE HCL/ACETAMINOPHEN 5-325 MG TABLET PO PRN ×3 (07:59→21:03)
[2023-12-02] MEDS: FAMOTIDINE 20 MG TABLET PO SCH (07:59)
[2023-12-02 08:36] VITALS: BP 136/70; PULSE 61; RESP 19; TEMP 98
[2023-12-02 11:56] LABS: GLUCOMETER DEV NAME(LOC) 4E.2; GLUCOSE,POINT OF CARE 123 MG/DL (70-110)
[2023-12-02 19:01] LABS: GLUCOMETER DEV NAME(LOC) 6S.2; GLUCOSE,POINT OF CARE 99 MG/DL (70-110)
[2023-12-02 20:29] VITALS: BP 148/73; PULSE 77; RESP 19; TEMP 98.7
[2023-12-02 21:08] VITALS: BP 145/79; RESP 18
[2023-12-02 21:26] LABS: GLUCOMETER DEV NAME(LOC) 6S.2; GLUCOSE,POINT OF CARE 114 MG/DL (70-110)
[2023-12-03 04:07] VITALS: BP 139/75; PULSE 70; RESP 18; TEMP 98.7
[2023-12-03 05:56] LABS: GLUCOMETER DEV NAME(LOC) 6S.2; GLUCOSE,POINT OF CARE 88 MG/DL (70-110)
[2023-12-03 08:00] VITALS: BP 150/69; PULSE 78; RESP 18; TEMP 99.7
[2023-12-03] MEDS: AmLODIPine BESYLATE 5 MG TABLET PO SCH (08:03)
[2023-12-03] MEDS: PredniSONE 10 MG TABLET PO SCH (08:03)
[2023-12-03] MEDS: FAMOTIDINE 20 MG TABLET PO SCH (08:03)
[2023-12-03] MEDS: APIXABAN 5 MG TABLET PO SCH (08:03)
[2023-12-03] MEDS: OxyCODONE HCL/ACETAMINOPHEN 5-325 MG TABLET PO PRN ×2 (08:03→14:47)
[2023-12-03] MEDS: AZITHROMYCIN 250 MG TABLET PO SCH (08:04)
[2023-12-03 12:11] LABS: GLUCOMETER DEV NAME(LOC) 4E.2; GLUCOSE,POINT OF CARE 138 MG/DL (70-110)
[2023-12-03 14:43] VITALS: BP 128/72; PULSE 73; RESP 20; TEMP 98.3
[2023-12-03] MEDS ORDERED: AMLO-257 PO (17:34)
[2023-12-03 18:57] LABS: GLUCOMETER DEV NAME(LOC) 6N.2B; GLUCOSE,POINT OF CARE 117 MG/DL (70-110)
== END 2023-12-03 20:17 | disposition home or self-care (01) | DRG 141 ==
LOC: EMS 13:36 → 5S 15:39 → 6S 11-27 00:41
PROVIDERS: ADMIT Internal Medicine; ATTEND Internal Medicine
DX: J45.901 Unspecified asthma with (acute) exacerbation (principal); T68.XXXA Hypothermia, initial encounter; C90.00 Multiple myeloma not having achieved remission; J44.1 Chronic obstructive pulmonary disease with (acute) exacerbation; E11.9 Type 2 diabetes mellitus without complications; I07.1 Rheumatic tricuspid insufficiency; Z20.822 Contact with and (suspected) exposure to COVID-19; R60.0 Localized edema; I10 Essential (primary) hypertension; Z83.3 Family history of diabetes mellitus; Z88.1 Allergy status to other antibiotic agents; Z79.899 Other long term (current) drug therapy; Z90.49 Acquired absence of other specified parts of digestive tract; Z85.830 Personal history of malignant neoplasm of bone; Z59.00 Homelessness unspecified
CPT/HCPCS: 71045; 80053; 82550; 82962; 83880; 84484; 85025; 93005; 93306; 93971; 94644; 97110; 97116; 97162; 97530; 99285; J2930; Q9967; 36415-L1; 36415-TC; J7512; Z7610